=== PATIENT | female | born 1950 | race Caucasian/White ===

== ENCOUNTER 2018-08-15 08:51 | Inpatient (IN) ==
[2018-08-15] MEDS ORDERED: HYDROmorphone 2 MG/1 ML VIAL IV STA (09:29)
[2018-08-15] MEDS ORDERED: SODIUM CHLORIDE 0.9% 1,000 ML IV STA (09:29)
[2018-08-15] MEDS ORDERED: CEFTAROLINE 600 MG in SODIUM CHLORIDE 0.9% 100 ML IV STA (09:29)
[2018-08-15] MEDS ORDERED: ONDANSETRON 4 MG/2 ML VIAL IV STA (09:29)
[2018-08-15 10:18] LABS: Basophils % 0.1 % (0.0-0.8); Eosinophils % 0.1 % (0.00-10.9); Hemoglobin 11.7 GM/DL (12.0-16.0); Immature Granulocytes % 1.8 %; Immature Granulocytes Absolute 0.36 #; Lymphocytes # 0.6 10*3/uL (1.4-4.0); Lymphocytes % 2.8 % (21.3-54.2); Mean Corpuscular HGB Conc 33.4 GM/DL (32-36); Mean Corpuscular Volume 90.7 FL (87-102); Mean Platelet Volume 8.9 FL (9.6-12.0); Monocytes % 4.4 % (1.7-12.7); Neutrophils % 90.8 % (38.7-73.9); Platelet Count 467 T/CUMM (130-400); Red Blood Count 3.86 MC/CUMM (3.8-5.5); Red Cell Distribution Width 14.8 % (9.3-17.3); White Blood Count 19.8 T/CUMM (4-12)
[2018-08-15 10:39] LABS: Band Neutrophils 7 % (0-10); Eosinophils 1 % (0-10); Lymphocytes 2 % (20-55); Platelet Estimate Adequate; Segmented Neutrophils 84 % (50-85); Total Cells Counted 100
[2018-08-15 10:53] LABS: Albumin 1.7 G/DL (3.4-5.0); Bilirubin,Total 0.8 MG/DL (0.2-1.0); Calcium 8.4 MG/DL (8.5-10.1); Osmolality,Calculated 259.1 MOS/KG (273-304); Total Protein 6.9 G/DL (6.4-8.3)
[2018-08-15 11:24] LABS: Sedimentation Rate-Westergren 73 MM/HR (0-30)
[2018-08-15] MEDS ORDERED: NICOTINE 21 MG/24 HR PATCH TRANSDERM PRN (11:53)
[2018-08-15] MEDS ORDERED: DOCUSATE SODIUM 100 MG CAPSULE PO PRN (11:53)
[2018-08-15 12:24] LABS: Risk Ratio 5.6; Thyroid Stimulating Hormone 1.12 uIU/ml (0.358-3.74); VLDL CHOLESTEROL 26.4 MG/DL
[2018-08-15] MEDS: SODIUM CHLORIDE 0.9% 1,000 ML IV SCH (15:00)
[2018-08-15] MEDS ORDERED: LIDOCAINE 1% 20 ML VIAL ONE (16:07)
[2018-08-15] MEDS ORDERED: MIDAZOLAM 2 MG/2 ML VIAL ONE (18:07)
[2018-08-15] MEDS ORDERED: PROPOFOL 200 MG/20 ML VIAL IV ONE (18:07)
[2018-08-15] MEDS ORDERED: SEVOFLURANE 1 UNIT/15 MINUTE INH ONE (18:07)
[2018-08-15] MEDS ORDERED: KETAMINE 500 MG/10 ML VIAL ONE (18:08)
[2018-08-15] MEDS: HYDROmorphone 2 MG/1 ML VIAL IV PRN (20:10)
[2018-08-15] MEDS: ONDANSETRON 4 MG/2 ML VIAL IV PRN (20:14)
[2018-08-15] MEDS: traZODone 50 MG TABLET PO SCH (21:17)
[2018-08-15] MEDS: CEFTAROLINE 600 MG in SODIUM CHLORIDE 0.9% 100 ML IV SCH (22:35)
[2018-08-16] MEDS: SODIUM CHLORIDE 0.9% 1,000 ML IV SCH ×4 (01:31→20:21)
[2018-08-16 02:39] LABS: Apearance,Urine CLEAR (Clear); Bacteria,Urine Occasional /HPF (Few); Bilirubin,Urine Negative (Negative); Blood, Urine Large mg/dL (Negative); Glucose,Urine (UA) Negative (Negative); Ketones,Urine Negative (Negative); Mucus,Urine Occasional /LPF (Occasional); Nitrite,Urine Negative (Negative); Protein,Urine 30 MG/DL; RBC,Urine 31 /HPF (0-4); Urine Color Yellow (Yellow); Urine Specific Gravity 1.013 (1.001-1.035); Urine Urobilinogen < 2.0 EU/DL (0.2-1.0); WBC,Urine 2 /HPF (0-6)
[2018-08-16 05:24] LABS: Eosinophils # 0.1 10*3/uL (0.0-0.87); Eosinophils % 0.3 % (0.00-10.9); Hematocrit 30.3 VOL% (35.7-47.0); Hemoglobin 10.1 GM/DL (12.0-16.0); Immature Granulocytes % 3.3 %; Immature Granulocytes Absolute 0.58 #; Lymphocytes # 0.8 10*3/uL (1.4-4.0); Lymphocytes % 4.3 % (21.3-54.2); Mean Corpuscular HGB Conc 33.3 GM/DL (32-36); Mean Corpuscular Volume 92.7 FL (87-102); Mean Platelet Volume 9.5 FL (9.6-12.0); Monocytes % 2.5 % (1.7-12.7); Neutrophils % 89.6 % (38.7-73.9); Platelet Count 348 T/CUMM (130-400); Red Blood Count 3.27 MC/CUMM (3.8-5.5); Red Cell Distribution Width 15.4 % (9.3-17.3); White Blood Count 17.7 T/CUMM (4-12)
[2018-08-16 05:56] LABS: Albumin 1.2 G/DL (3.4-5.0); Bilirubin,Total 0.6 MG/DL (0.2-1.0); Calcium 7.6 MG/DL (8.5-10.1); Osmolality,Calculated 261.8 MOS/KG (273-304); Total Protein 5.6 G/DL (6.4-8.3)
[2018-08-16 06:30] LABS: Band Neutrophils 8 % (0-10); Lymphocytes 5 % (20-55); Segmented Neutrophils 83 % (50-85); Total Cells Counted 100
[2018-08-16 06:31] LABS: Platelet Estimate Adequate
[2018-08-16 06:32] LABS: Hypochromasia Slight
[2018-08-16] MEDS: amLODIPine 5 MG TABLET PO SCH (08:36)
[2018-08-16] MEDS: ROSUVASTATIN 20 MG TABLET PO SCH (08:37)
[2018-08-16] MEDS: PANTOPRAZOLE 40 MG TABLET PO SCH (08:37)
[2018-08-16] MEDS ORDERED: DIAZEPAM 5 MG TABLET PO ONE (09:00)
[2018-08-16] MEDS: CEFTAROLINE 600 MG in SODIUM CHLORIDE 0.9% 100 ML IV SCH (09:55)
[2018-08-16] MEDS: HYDROmorphone 2 MG/1 ML VIAL IV PRN ×3 (12:46→23:12)
[2018-08-16] MEDS: VANCOMYCIN INJ 750 MG in SODIUM CHLORIDE 0.9% 250 ML IV SCH (15:05)
[2018-08-16] MEDS ORDERED: fentaNYL 100 MCG/2 ML VIAL ONE (16:10)
[2018-08-16] MEDS ORDERED: ETOMIDATE 40 MG/20 ML VIAL IV ONE (16:10)
[2018-08-16] MEDS ORDERED: DESFLURANE 1 UNIT/15 MINUTE INH ONE (16:10)
[2018-08-16] MEDS ORDERED: PROPOFOL 200 MG/20 ML VIAL IV ONE (16:10)
[2018-08-16] MEDS ORDERED: PHENYLEPHRINE 10 MG/1 ML VIAL IV ONE (16:10)
[2018-08-16] MEDS ORDERED: ROCURONIUM 100 MG/10 ML VIAL IV ONE (16:11)
[2018-08-16] MEDS ORDERED: SODIUM CHLORIDE 0.9% 100 ML IV ONE (16:11)
[2018-08-16] MEDS ORDERED: GLYCOPYRROLATE 0.4 MG/2 ML VIAL ONE (16:11)
[2018-08-16] MEDS ORDERED: NEOSTIGMINE 10 MG/10 ML VIAL ONE (16:11)
[2018-08-16] MEDS ORDERED: PHENYLEPHRINE 1 MG/10 ML SYRINGE IV ONE (16:11)
[2018-08-16] MEDS: PIPERACILLIN/TAZOBACTAM 3,375 MG in SODIUM CHLORIDE 0.9% 100 ML IV SCH (18:42)
[2018-08-16] MEDS: traZODone 50 MG TABLET PO SCH (22:12)
[2018-08-16] MEDS: ONDANSETRON 4 MG/2 ML VIAL IV PRN (23:12)
[2018-08-17] MEDS: VANCOMYCIN INJ 750 MG in SODIUM CHLORIDE 0.9% 250 ML IV SCH ×2 (02:10→14:10)
[2018-08-17] MEDS: PIPERACILLIN/TAZOBACTAM 3,375 MG in SODIUM CHLORIDE 0.9% 100 ML IV SCH ×3 (03:18→17:37)
[2018-08-17 05:23] LABS: Basophils # 0.2 10*3/uL (0.0-0.2); Basophils % 0.8 % (0.0-0.8); Eosinophils # 0.2 10*3/uL (0.0-0.87); Hematocrit 28.7 VOL% (35.7-47.0); Hemoglobin 9.4 GM/DL (12.0-16.0); Immature Granulocytes % 1.4 %; Immature Granulocytes Absolute 0.26 #; Lymphocytes # 0.8 10*3/uL (1.4-4.0); Lymphocytes % 4.4 % (21.3-54.2); Mean Corpuscular HGB Conc 32.8 GM/DL (32-36); Mean Corpuscular Volume 94.1 FL (87-102); Mean Platelet Volume 9.2 FL (9.6-12.0); Monocytes % 2.2 % (1.7-12.7); Neutrophils % 90.2 % (38.7-73.9); Platelet Count 353 T/CUMM (130-400); Red Blood Count 3.05 MC/CUMM (3.8-5.5); White Blood Count 18.8 T/CUMM (4-12)
[2018-08-17 05:54] LABS: Albumin 1.1 G/DL (3.4-5.0); Bilirubin,Total 0.6 MG/DL (0.2-1.0); Calcium 7.6 MG/DL (8.5-10.1); Osmolality,Calculated 269.1 MOS/KG (273-304); Total Protein 5.4 G/DL (6.4-8.3)
[2018-08-17 05:56] LABS: Anisocytosis 1+; Band Neutrophils 15 % (0-10); Lymphocytes 5 % (20-55); Segmented Neutrophils 80 % (50-85); Total Cells Counted 100
[2018-08-17 05:57] LABS: Tear Drop Cells Few
[2018-08-17 05:58] LABS: Ovalocytes Few; Platelet Estimate Adequate
[2018-08-17] MEDS ORDERED: HEPARIN/NACL 0.9% 2 UNITS/ML 500 ML IV ONE (07:44)
[2018-08-17] MEDS: SODIUM CHLORIDE 0.9% 1,000 ML IV SCH ×2 (07:47→17:36)
[2018-08-17] MEDS ORDERED: PHENYLEPHRINE 1 MG/10 ML SYRINGE IV ONE (09:59)
[2018-08-17] MEDS ORDERED: SEVOFLURANE 1 UNIT/15 MINUTE INH ONE (09:59)
[2018-08-17] MEDS ORDERED: ROCURONIUM 100 MG/10 ML VIAL IV ONE (09:59)
[2018-08-17] MEDS ORDERED: ETOMIDATE 40 MG/20 ML VIAL IV ONE (09:59)
[2018-08-17] MEDS ORDERED: ePHEDrine 50 MG/ML AMP ONE (09:59)
[2018-08-17] MEDS ORDERED: LACTATED RINGERS 1,000 ML IV ONE (09:59)
[2018-08-17] MEDS ORDERED: fentaNYL 100 MCG/2 ML VIAL ONE (10:00)
[2018-08-17] MEDS: PANTOPRAZOLE 40 MG TABLET PO SCH (11:08)
[2018-08-17] MEDS: HYDROmorphone 2 MG/1 ML VIAL IV PRN ×4 (11:08→20:48)
[2018-08-17] MEDS: amLODIPine 5 MG TABLET PO SCH (11:08)
[2018-08-17] MEDS: ROSUVASTATIN 20 MG TABLET PO SCH (11:08)
[2018-08-17] MEDS: traZODone 50 MG TABLET PO SCH (20:48)
[2018-08-18] MEDS: PIPERACILLIN/TAZOBACTAM 3,375 MG in SODIUM CHLORIDE 0.9% 100 ML IV SCH ×3 (02:05→21:02)
[2018-08-18] MEDS: VANCOMYCIN INJ 750 MG in SODIUM CHLORIDE 0.9% 250 ML IV SCH ×2 (02:05→14:22)
[2018-08-18 03:34] LABS: Amorphous Crystals,Urine Occasional /HPF (Few); Apearance,Urine Slightly Hazy (Clear); Bilirubin,Urine Negative (Negative); Blood, Urine Large mg/dL (Negative); Glucose,Urine (UA) Negative (Negative); Ketones,Urine Negative (Negative); Mucus,Urine Occasional /LPF (Occasional); Nitrite,Urine Negative (Negative); Protein,Urine 30 MG/DL; RBC,Urine 1 /HPF (0-4); Squamous Epithelial Cell,Urine Occasional /HPF (0-10); Urine Color Yellow (Yellow); Urine Specific Gravity 1.013 (1.001-1.035); Urine Urobilinogen < 2.0 EU/DL (0.2-1.0); WBC,Urine 3 /HPF (0-6)
[2018-08-18] MEDS: HYDROmorphone 2 MG/1 ML VIAL IV PRN ×3 (04:42→20:04)
[2018-08-18] MEDS: SODIUM CHLORIDE 0.9% 1,000 ML IV SCH (04:50)
[2018-08-18 04:58] LABS: Basophils # 0.1 10*3/uL (0.0-0.2); Basophils % 0.3 % (0.0-0.8); Eosinophils # 0.2 10*3/uL (0.0-0.87); Eosinophils % 0.8 % (0.00-10.9); Hematocrit 22.4 VOL% (35.7-47.0); Hemoglobin 7.6 GM/DL (12.0-16.0); Immature Granulocytes % 2.9 %; Immature Granulocytes Absolute 0.71 #; Mean Corpuscular HGB Conc 33.9 GM/DL (32-36); Mean Corpuscular Volume 91.8 FL (87-102); Mean Platelet Volume 9.2 FL (9.6-12.0); Monocytes % 2.3 % (1.7-12.7); Neutrophils % 89.7 % (38.7-73.9); Platelet Count 308 T/CUMM (130-400); Red Blood Count 2.44 MC/CUMM (3.8-5.5); White Blood Count 24.3 T/CUMM (4-12)
[2018-08-18 05:28] LABS: Bilirubin,Total 0.5 MG/DL (0.2-1.0); Calcium 7.4 MG/DL (8.5-10.1); Total Protein 4.8 G/DL (6.4-8.3)
[2018-08-18 05:38] LABS: Eosinophils 1 % (0-10); Lymphocytes 6 % (20-55); Segmented Neutrophils 93 % (50-85); Total Cells Counted 100
[2018-08-18 05:39] LABS: Anisocytosis Slight; Microcytosis 1+; Toxic Granulation 1+
[2018-08-18 05:40] LABS: Platelet Estimate Normal; Target Cells Slight
[2018-08-18] MEDS ORDERED: SODIUM CHLORIDE 0.9% 1,000 ML IV PRN (07:52)
[2018-08-18] MEDS: PANTOPRAZOLE 40 MG TABLET PO SCH (08:48)
[2018-08-18] MEDS: amLODIPine 5 MG TABLET PO SCH (08:48)
[2018-08-18] MEDS: ROSUVASTATIN 20 MG TABLET PO SCH (08:48)
[2018-08-18] MEDS ORDERED: SEVOFLURANE 1 UNIT/15 MINUTE INH ONE (08:58)
[2018-08-18] MEDS ORDERED: GLYCOPYRROLATE 0.4 MG/2 ML VIAL ONE (08:58)
[2018-08-18] MEDS ORDERED: fentaNYL 100 MCG/2 ML VIAL ONE (08:58)
[2018-08-18] MEDS ORDERED: PHENYLEPHRINE 1 MG/10 ML SYRINGE IV ONE (08:58)
[2018-08-18] MEDS ORDERED: ETOMIDATE 40 MG/20 ML VIAL IV ONE (08:58)
[2018-08-18] MEDS ORDERED: ONDANSETRON 4 MG/2 ML VIAL ONE (08:58)
[2018-08-18] MEDS ORDERED: NEOSTIGMINE 10 MG/10 ML VIAL ONE (08:59)
[2018-08-18] MEDS ORDERED: ROCURONIUM 100 MG/10 ML VIAL IV ONE (08:59)
[2018-08-18 18:47] LABS: Hematocrit 35.5 VOL% (35.7-47.0)
[2018-08-18 18:48] LABS: Hemoglobin 11.6 GM/DL (12.0-16.0)
[2018-08-18] MEDS: traZODone 50 MG TABLET PO SCH (20:03)
[2018-08-19] MEDS: HYDROmorphone 2 MG/1 ML VIAL IV PRN ×6 (01:22→21:42)
[2018-08-19] MEDS: VANCOMYCIN INJ 1,000 MG in SODIUM CHLORIDE 0.9% 250 ML IV SCH ×2 (01:35→12:05)
[2018-08-19 05:16] LABS: Basophils # 0.1 10*3/uL (0.0-0.2); Basophils % 0.3 % (0.0-0.8); Eosinophils # 0.1 10*3/uL (0.0-0.87); Eosinophils % 0.9 % (0.00-10.9); Hematocrit 30.5 VOL% (35.7-47.0); Hemoglobin 10.2 GM/DL (12.0-16.0); Immature Granulocytes % 2.6 %; Immature Granulocytes Absolute 0.42 #; Lymphocytes % 6.4 % (21.3-54.2); Mean Corpuscular HGB Conc 33.4 GM/DL (32-36); Mean Platelet Volume 9.6 FL (9.6-12.0); Monocytes % 3.6 % (1.7-12.7); Neutrophils % 86.2 % (38.7-73.9); Platelet Count 283 T/CUMM (130-400); Red Blood Count 3.39 MC/CUMM (3.8-5.5); Red Cell Distribution Width 16.2 % (9.3-17.3)
[2018-08-19] MEDS: PIPERACILLIN/TAZOBACTAM 3,375 MG in SODIUM CHLORIDE 0.9% 100 ML IV SCH ×3 (05:39→21:30)
[2018-08-19 05:55] LABS: Lymphocytes 3 % (20-55); Pappenheimer Bodies Few; Platelet Estimate Normal; Segmented Neutrophils 97 % (50-85); Total Cells Counted 100
[2018-08-19] MEDS ORDERED: fentaNYL 100 MCG/2 ML VIAL ONE (10:34)
[2018-08-19] MEDS ORDERED: KETAMINE 500 MG/10 ML VIAL ONE (10:34)
[2018-08-19] MEDS ORDERED: MIDAZOLAM 2 MG/2 ML VIAL ONE (10:34)
[2018-08-19] MEDS ORDERED: ETOMIDATE 40 MG/20 ML VIAL IV ONE (10:35)
[2018-08-19] MEDS: SODIUM CHLORIDE 0.9% 1,000 ML IV SCH (11:35)
[2018-08-19] MEDS: ROSUVASTATIN 20 MG TABLET PO SCH (12:04)
[2018-08-19] MEDS: PANTOPRAZOLE 40 MG TABLET PO SCH (12:04)
[2018-08-19] MEDS: amLODIPine 5 MG TABLET PO SCH (12:04)
[2018-08-19] MEDS: traZODone 50 MG TABLET PO SCH (21:30)
[2018-08-20] MEDS: VANCOMYCIN INJ 1,000 MG in SODIUM CHLORIDE 0.9% 250 ML IV SCH ×2 (01:52→13:38)
[2018-08-20] MEDS: HYDROmorphone 2 MG/1 ML VIAL IV PRN ×7 (03:09→21:32)
[2018-08-20 03:52] LABS: Basophils # 0.1 10*3/uL (0.0-0.2); Basophils % 0.4 % (0.0-0.8); Eosinophils # 0.1 10*3/uL (0.0-0.87); Eosinophils % 0.7 % (0.00-10.9); Hematocrit 30.6 VOL% (35.7-47.0); Hemoglobin 10.3 GM/DL (12.0-16.0); Immature Granulocytes % 1.7 %; Immature Granulocytes Absolute 0.25 #; Lymphocytes # 0.9 10*3/uL (1.4-4.0); Mean Corpuscular HGB Conc 33.7 GM/DL (32-36); Mean Corpuscular Volume 89.2 FL (87-102); Mean Platelet Volume 9.8 FL (9.6-12.0); Monocytes % 3.6 % (1.7-12.7); Neutrophils % 87.6 % (38.7-73.9); Platelet Count 260 T/CUMM (130-400); Red Blood Count 3.43 MC/CUMM (3.8-5.5); Red Cell Distribution Width 16.3 % (9.3-17.3); White Blood Count 15.1 T/CUMM (4-12)
[2018-08-20 04:10] LABS: Calcium 7.8 MG/DL (8.5-10.1); Osmolality,Calculated 279.3 MOS/KG (273-304)
[2018-08-20 04:28] LABS: Band Neutrophils 3 % (0-10); Hypochromasia 2+; Lymphocytes 7 % (20-55); Metamyelocytes 1 %; Platelet Estimate Normal; Segmented Neutrophils 83 % (50-85); Total Cells Counted 100
[2018-08-20] MEDS: PIPERACILLIN/TAZOBACTAM 3,375 MG in SODIUM CHLORIDE 0.9% 100 ML IV SCH ×3 (06:40→21:13)
[2018-08-20] MEDS: PANTOPRAZOLE 40 MG TABLET PO SCH (10:04)
[2018-08-20] MEDS: amLODIPine 5 MG TABLET PO SCH (10:04)
[2018-08-20] MEDS: ROSUVASTATIN 20 MG TABLET PO SCH (10:04)
[2018-08-20] MEDS: VANCOMYCIN INJ 750 MG in SODIUM CHLORIDE 0.9% 250 ML IV SCH (14:07)
[2018-08-20] MEDS: traZODone 50 MG TABLET PO SCH (21:12)
[2018-08-21] MEDS: VANCOMYCIN INJ 750 MG in SODIUM CHLORIDE 0.9% 250 ML IV SCH ×2 (01:32→14:15)
[2018-08-21] MEDS: HYDROmorphone 2 MG/1 ML VIAL IV PRN ×6 (02:57→21:13)
[2018-08-21 04:25] LABS: Basophils # 0.1 10*3/uL (0.0-0.2); Basophils % 0.4 % (0.0-0.8); Eosinophils # 0.1 10*3/uL (0.0-0.87); Eosinophils % 0.6 % (0.00-10.9); Hemoglobin 9.4 GM/DL (12.0-16.0); Immature Granulocytes % 1.7 %; Lymphocytes # 0.8 10*3/uL (1.4-4.0); Lymphocytes % 6.4 % (21.3-54.2); Mean Corpuscular HGB Conc 32.4 GM/DL (32-36); Mean Corpuscular Volume 92.1 FL (87-102); Mean Platelet Volume 9.6 FL (9.6-12.0); Monocytes % 4.2 % (1.7-12.7); Neutrophils % 86.7 % (38.7-73.9); Platelet Count 241 T/CUMM (130-400); Red Blood Count 3.15 MC/CUMM (3.8-5.5); Red Cell Distribution Width 16.2 % (9.3-17.3); White Blood Count 11.8 T/CUMM (4-12)
[2018-08-21 04:46] LABS: Calcium 7.7 MG/DL (8.5-10.1); Osmolality,Calculated 281.3 MOS/KG (273-304)
[2018-08-21 05:35] LABS: Band Neutrophils 3 % (0-10); Lymphocytes 6 % (20-55); Platelet Estimate Normal; Segmented Neutrophils 86 % (50-85); Total Cells Counted 100
[2018-08-21] MEDS: PIPERACILLIN/TAZOBACTAM 3,375 MG in SODIUM CHLORIDE 0.9% 100 ML IV SCH ×3 (06:26→21:12)
[2018-08-21] MEDS ORDERED: POTASSIUM CHLORIDE 20 MEQ/15 ML UDCUP PO PRN (07:36)
[2018-08-21] MEDS: POTASSIUM CHLORIDE 20 MEQ TABLET PO PRN ×4 (07:53→14:28)
[2018-08-21] MEDS: ROSUVASTATIN 20 MG TABLET PO SCH (10:34)
[2018-08-21] MEDS: PANTOPRAZOLE 40 MG TABLET PO SCH (10:35)
[2018-08-21] MEDS: amLODIPine 5 MG TABLET PO SCH (10:35)
[2018-08-21] MEDS: traZODone 50 MG TABLET PO SCH (20:25)
[2018-08-22] MEDS: VANCOMYCIN INJ 750 MG in SODIUM CHLORIDE 0.9% 250 ML IV SCH ×2 (01:35→14:54)
[2018-08-22] MEDS: HYDROmorphone 2 MG/1 ML VIAL IV PRN ×5 (02:25→20:24)
[2018-08-22 05:09] LABS: Basophils # 0.1 10*3/uL (0.0-0.2); Basophils % 0.5 % (0.0-0.8); Eosinophils # 0.1 10*3/uL (0.0-0.87); Hemoglobin 9.3 GM/DL (12.0-16.0); Immature Granulocytes % 1.1 %; Immature Granulocytes Absolute 0.12 #; Lymphocytes % 9.4 % (21.3-54.2); Mean Corpuscular HGB Conc 32.1 GM/DL (32-36); Mean Corpuscular Volume 93.5 FL (87-102); Mean Platelet Volume 9.8 FL (9.6-12.0); Monocytes % 6.4 % (1.7-12.7); Neutrophils % 81.6 % (38.7-73.9); Platelet Count 263 T/CUMM (130-400); White Blood Count 10.5 T/CUMM (4-12)
[2018-08-22 05:45] LABS: Anisocytosis Slight; Band Neutrophils 3 % (0-10); Lymphocytes 10 % (20-55); Platelet Estimate Adequate; Segmented Neutrophils 87 % (50-85); Total Cells Counted 100
[2018-08-22] MEDS: PIPERACILLIN/TAZOBACTAM 3,375 MG in SODIUM CHLORIDE 0.9% 100 ML IV SCH ×2 (06:18→17:31)
[2018-08-22] MEDS: amLODIPine 5 MG TABLET PO SCH (08:12)
[2018-08-22] MEDS: PANTOPRAZOLE 40 MG TABLET PO SCH (08:12)
[2018-08-22] MEDS: ROSUVASTATIN 20 MG TABLET PO SCH (08:12)
[2018-08-22] MEDS ORDERED: PROPOFOL 200 MG/20 ML VIAL IV ONE (12:16)
[2018-08-22] MEDS ORDERED: SUCCINYLCHOLINE 200 MG/10 ML VIAL ONE (12:16)
[2018-08-22] MEDS ORDERED: fentaNYL 100 MCG/2 ML VIAL ONE (12:16)
[2018-08-22] MEDS ORDERED: DESFLURANE 1 UNIT/15 MINUTE INH ONE (12:16)
[2018-08-22] MEDS ORDERED: FUROSEMIDE 40 MG/4 ML VIAL IV ONE (16:51)
[2018-08-22] MEDS: MONTELUKAST 10 MG TABLET PO SCH (20:27)
[2018-08-22] MEDS: traZODone 50 MG TABLET PO SCH (20:27)
[2018-08-23] MEDS: PIPERACILLIN/TAZOBACTAM 3,375 MG in SODIUM CHLORIDE 0.9% 100 ML IV SCH ×4 (01:12→22:01)
[2018-08-23] MEDS: HYDROmorphone 2 MG/1 ML VIAL IV PRN ×8 (01:30→20:47)
[2018-08-23 04:21] LABS: Basophils # 0.1 10*3/uL (0.0-0.2); Basophils % 0.5 % (0.0-0.8); Eosinophils # 0.2 10*3/uL (0.0-0.87); Eosinophils % 1.4 % (0.00-10.9); Hemoglobin 9.4 GM/DL (12.0-16.0); Immature Granulocytes % 0.5 %; Immature Granulocytes Absolute 0.05 #; Lymphocytes % 8.8 % (21.3-54.2); Mean Corpuscular HGB Conc 32.4 GM/DL (32-36); Mean Corpuscular Volume 92.9 FL (87-102); Mean Platelet Volume 9.9 FL (9.6-12.0); Neutrophils % 82.8 % (38.7-73.9); Platelet Count 272 T/CUMM (130-400); Red Blood Count 3.12 MC/CUMM (3.8-5.5); Red Cell Distribution Width 15.9 % (9.3-17.3); White Blood Count 10.9 T/CUMM (4-12)
[2018-08-23 04:37] LABS: Bilirubin,Total 0.5 MG/DL (0.2-1.0); Calcium 8.2 MG/DL (8.5-10.1); Osmolality,Calculated 276.5 MOS/KG (273-304); Total Protein 5.5 G/DL (6.4-8.3)
[2018-08-23 04:43] LABS: Band Neutrophils 1 % (0-10); Eosinophils 1 % (0-10); Hypochromasia 1+; Lymphocytes 10 % (20-55); Platelet Estimate Adequate; Segmented Neutrophils 81 % (50-85); Total Cells Counted 100
[2018-08-23] MEDS: PANTOPRAZOLE 40 MG TABLET PO SCH (08:16)
[2018-08-23] MEDS: POTASSIUM CHLORIDE 20 MEQ TABLET PO PRN (08:16)
[2018-08-23] MEDS: amLODIPine 5 MG TABLET PO SCH (08:16)
[2018-08-23] MEDS: traZODone 50 MG TABLET PO SCH (20:46)
[2018-08-23] MEDS: MONTELUKAST 10 MG TABLET PO SCH (20:47)
[2018-08-24] MEDS: HYDROmorphone 2 MG/1 ML VIAL IV PRN ×6 (01:15→22:17)
[2018-08-24 04:44] LABS: Basophils % 0.3 % (0.0-0.8); Eosinophils # 0.1 10*3/uL (0.0-0.87); Eosinophils % 0.4 % (0.00-10.9); Hematocrit 28.9 VOL% (35.7-47.0); Hemoglobin 9.1 GM/DL (12.0-16.0); Immature Granulocytes % 0.8 %; Lymphocytes # 0.9 10*3/uL (1.4-4.0); Lymphocytes % 7.2 % (21.3-54.2); Mean Corpuscular HGB Conc 31.5 GM/DL (32-36); Mean Corpuscular Volume 94.8 FL (87-102); Mean Platelet Volume 9.9 FL (9.6-12.0); Monocytes % 6.4 % (1.7-12.7); Neutrophils % 84.9 % (38.7-73.9); Platelet Count 307 T/CUMM (130-400); Red Blood Count 3.05 MC/CUMM (3.8-5.5); Red Cell Distribution Width 15.7 % (9.3-17.3); White Blood Count 12.5 T/CUMM (4-12)
[2018-08-24 05:05] LABS: Hypochromasia 1+; Platelet Estimate Adequate
[2018-08-24 05:18] LABS: Albumin 1.1 G/DL (3.4-5.0); Bilirubin,Total 0.7 MG/DL (0.2-1.0); Calcium 8.2 MG/DL (8.5-10.1); Osmolality,Calculated 283.1 MOS/KG (273-304); Total Protein 5.7 G/DL (6.4-8.3)
[2018-08-24] MEDS: PIPERACILLIN/TAZOBACTAM 3,375 MG in SODIUM CHLORIDE 0.9% 100 ML IV SCH ×3 (05:52→22:58)
[2018-08-24] MEDS ORDERED: POTASSIUM CHLORIDE RIDER 10 MEQ in PREMIX 1 EACH IV PRN (06:09)
[2018-08-24] MEDS: POTASSIUM CHLORIDE RIDER 20 MEQ in PREMIX 1 EACH IV PRN ×2 (06:40→13:00)
[2018-08-24] MEDS ORDERED: PROPOFOL 200 MG/20 ML VIAL IV ONE (07:06)
[2018-08-24] MEDS ORDERED: ETOMIDATE 40 MG/20 ML VIAL IV ONE ×2 (07:06→11:00)
[2018-08-24] MEDS ORDERED: PHENYLEPHRINE 1 MG/10 ML SYRINGE IV ONE (07:07)
[2018-08-24] MEDS ORDERED: LIDOCAINE 1%/EPI INJ 20 ML VIAL ONE (10:01)
[2018-08-24] MEDS: PANTOPRAZOLE 40 MG TABLET PO SCH (10:16)
[2018-08-24] MEDS: amLODIPine 5 MG TABLET PO SCH (10:16)
[2018-08-24] MEDS ORDERED: fentaNYL 100 MCG/2 ML VIAL ONE (10:59)
[2018-08-24] MEDS ORDERED: MIDAZOLAM 2 MG/2 ML VIAL ONE (11:00)
[2018-08-24] MEDS ORDERED: KETAMINE 500 MG/10 ML VIAL ONE (11:00)
[2018-08-24] MEDS: GLYCOPYRROLATE 0.4 MG/2 ML VIAL IV SCH ×3 (16:20→22:56)
[2018-08-24] MEDS: traZODone 50 MG TABLET PO SCH (20:23)
[2018-08-24] MEDS: CHLORHEXIDINE 0.12% ORAL RINSE 60 ML BOTTLE SWISH/SPIT SCH (20:23)
[2018-08-24] MEDS: MONTELUKAST 10 MG TABLET PO SCH (20:23)
[2018-08-24] MEDS ORDERED: LACTATED RINGERS 500 ML IV ONE (23:13)
[2018-08-24] MEDS: DEXTROSE 5% NACL 0.45% 1,000 ML IV SCH (23:50)
[2018-08-25] MEDS: HYDROmorphone 2 MG/1 ML VIAL IV PRN ×4 (00:44→11:58)
[2018-08-25] MEDS: GLYCOPYRROLATE 0.4 MG/2 ML VIAL IV SCH ×4 (03:49→21:00)
[2018-08-25 04:14] LABS: Basophils # 0.1 10*3/uL (0.0-0.2); Basophils % 0.8 % (0.0-0.8); Eosinophils # 0.2 10*3/uL (0.0-0.87); Eosinophils % 2.1 % (0.00-10.9); Hematocrit 30.3 VOL% (35.7-47.0); Hemoglobin 9.5 GM/DL (12.0-16.0); Immature Granulocytes % 0.7 %; Immature Granulocytes Absolute 0.07 #; Lymphocytes # 1.4 10*3/uL (1.4-4.0); Mean Corpuscular HGB Conc 31.4 GM/DL (32-36); Mean Corpuscular Volume 96.2 FL (87-102); Mean Platelet Volume 10.1 FL (9.6-12.0); Monocytes % 6.4 % (1.7-12.7); Platelet Count 352 T/CUMM (130-400); Red Blood Count 3.15 MC/CUMM (3.8-5.5); Red Cell Distribution Width 15.9 % (9.3-17.3); White Blood Count 9.8 T/CUMM (4-12)
[2018-08-25 04:17] LABS: ABG Base Excess 7.1 MMOL/L (-2.5-2.5); ABG HCO3 32.6 MMOL/L (20-26); ABG PH 7.423 (7.35-7.45); ABG PO2 70.3 MM HG (80-95); ABG TCO2 34.1 MMOL/L (23-27); Allen Test Positive
[2018-08-25 04:39] LABS: Calcium 7.8 MG/DL (8.5-10.1); Osmolality,Calculated 290.8 MOS/KG (273-304)
[2018-08-25 04:41] LABS: Eosinophils 3 % (0-10); Hypochromasia Slight; Lymphocytes 15 % (20-55); Platelet Estimate Normal; Segmented Neutrophils 77 % (50-85); Total Cells Counted 100
[2018-08-25] MEDS: PIPERACILLIN/TAZOBACTAM 3,375 MG in SODIUM CHLORIDE 0.9% 100 ML IV SCH ×3 (06:26→21:03)
[2018-08-25] MEDS: DEXTROSE 5% NACL 0.45% 1,000 ML IV SCH ×2 (08:45→18:41)
[2018-08-25] MEDS: CHLORHEXIDINE 0.12% ORAL RINSE 60 ML BOTTLE SWISH/SPIT SCH ×2 (08:45→20:51)
[2018-08-25] MEDS: PANTOPRAZOLE 40 MG TABLET PO SCH (08:50)
[2018-08-25] MEDS: amLODIPine 5 MG TABLET PO SCH (08:50)
[2018-08-25] MEDS: ALBUTEROL 2.5 MG/3 ML NEB RESP TX PRN ×2 (09:20→13:50)
[2018-08-25] MEDS ORDERED: HEPARIN/NACL 0.9% 2 UNITS/ML 500 ML IV ONE (14:48)
[2018-08-25] MEDS ORDERED: SEVOFLURANE 1 UNIT/15 MINUTE INH ONE (14:52)
[2018-08-25] MEDS ORDERED: ETOMIDATE 40 MG/20 ML VIAL IV ONE (14:53)
[2018-08-25] MEDS ORDERED: ROCURONIUM 100 MG/10 ML VIAL IV ONE (14:53)
[2018-08-25] MEDS ORDERED: SUCCINYLCHOLINE 200 MG/10 ML VIAL ONE (14:53)
[2018-08-25] MEDS ORDERED: MIDAZOLAM 2 MG/2 ML VIAL ONE (14:53)
[2018-08-25] MEDS: PROPOFOL 1,000 MG/100 ML BOTTLE IV SCH (15:56)
[2018-08-25] MEDS: fentaNYL INJ 1,250 MCG in SODIUM CHLORIDE 0.9% 225 ML IV PRN (18:40)
[2018-08-25] MEDS: traZODone 50 MG TABLET PO SCH (20:50)
[2018-08-25] MEDS: MONTELUKAST 10 MG TABLET PO SCH (20:50)
[2018-08-26 03:51] LABS: ABG Base Excess 3.9 MMOL/L (-2.5-2.5); ABG Oxygen Saturation 99.9 % (95-100); ABG PCO2 44.2 MM HG (35-48); ABG PH 7.422 (7.35-7.45); ABG TCO2 26.9 MMOL/L (23-27)
[2018-08-26 03:53] LABS: Basophils # 0.1 10*3/uL (0.0-0.2); Basophils % 0.7 % (0.0-0.8); Eosinophils # 0.3 10*3/uL (0.0-0.87); Eosinophils % 2.7 % (0.00-10.9); Hemoglobin 7.7 GM/DL (12.0-16.0); Immature Granulocytes % 1.2 %; Immature Granulocytes Absolute 0.14 #; Lymphocytes # 1.6 10*3/uL (1.4-4.0); Lymphocytes % 13.6 % (21.3-54.2); Mean Corpuscular HGB Conc 30.8 GM/DL (32-36); Mean Corpuscular Volume 97.3 FL (87-102); Mean Platelet Volume 10.3 FL (9.6-12.0); Monocytes % 4.5 % (1.7-12.7); Neutrophils % 77.3 % (38.7-73.9); Platelet Count 280 T/CUMM (130-400); Red Blood Count 2.57 MC/CUMM (3.8-5.5); Red Cell Distribution Width 15.9 % (9.3-17.3); White Blood Count 11.7 T/CUMM (4-12)
[2018-08-26 04:06] LABS: Osmolality,Calculated 293.6 MOS/KG (273-304)
[2018-08-26] MEDS: DEXTROSE 5% NACL 0.45% 1,000 ML IV SCH ×3 (04:12→15:54)
[2018-08-26 04:18] LABS: Anisocytosis 1+; Atypical Lymphocytes Few; Band Neutrophils 14 % (0-10); Eosinophils 2 % (0-10); Hypochromasia 1+; Lymphocytes 13 % (20-55); Metamyelocytes 1 %; Microcytosis Slight; Segmented Neutrophils 65 % (50-85); Total Cells Counted 100
[2018-08-26 04:19] LABS: Platelet Estimate Adequate; Toxic Granulation 1+
[2018-08-26] MEDS: PROPOFOL 1,000 MG/100 ML BOTTLE IV SCH ×2 (05:01→14:36)
[2018-08-26] MEDS: GLYCOPYRROLATE 0.4 MG/2 ML VIAL IV SCH ×2 (05:58→14:34)
[2018-08-26] MEDS: POTASSIUM CHLORIDE RIDER 20 MEQ in PREMIX 1 EACH IV PRN (06:00)
[2018-08-26] MEDS: PIPERACILLIN/TAZOBACTAM 3,375 MG in SODIUM CHLORIDE 0.9% 100 ML IV SCH ×2 (06:00→14:35)
[2018-08-26] MEDS ORDERED: ETOMIDATE 40 MG/20 ML VIAL IV ONE (10:08)
[2018-08-26] MEDS: amLODIPine 5 MG TABLET PO SCH (10:38)
[2018-08-26] MEDS: CHLORHEXIDINE 0.12% ORAL RINSE 60 ML BOTTLE SWISH/SPIT SCH (10:38)
[2018-08-26] MEDS: PANTOPRAZOLE 40 MG TABLET PO SCH (10:38)
[2018-08-26] MEDS ORDERED: ETOMIDATE 20 MG/10 ML VIAL IV ONE (12:00)
[2018-08-26] MEDS: fentaNYL INJ 1,250 MCG in SODIUM CHLORIDE 0.9% 225 ML IV PRN (12:39)
[2018-08-26] MEDS ORDERED: SODIUM HYPOCHLORITE 0.25% IRRIG 473 ML BOTTLE ONE (13:43)
[2018-08-26] MEDS: HYDROmorphone 2 MG/1 ML VIAL IV PRN (14:00)
[2018-08-26] MEDS ORDERED: GLUCAGON 1 MG VIAL IM PRN (14:23)
[2018-08-26] MEDS ORDERED: DEXTROSE 50% 25 GM/50 ML VIAL IV PRN (14:23)
[2018-08-26] MEDS ORDERED: INSULIN REGULAR 100 UNIT/ML SUBCUT SCH (18:00)
[2018-08-26 18:16] VITALS: BP 116/50
== END 2018-08-26 19:10 | disposition hospice, home (50) | DRG 463 ==
LOC: EDUNIT# → EDBD → N.ED 08:51 → SUATTDRO 11:53 → N.EDINP 11:53 → N.5E 13:09 → N.ICU 14:40
PROVIDERS: ADMIT Internal Medicine; ATTEND Internal Medicine Geriatric Medicine
PROC: EGDWPEG (ICD-10-PCS; 2018-08-26 07:05)